=== PATIENT | male | born 1990 | race Caucasian/White ===

== ENCOUNTER 2021-10-16 09:19 | Emergency (ER) | payer OTHER ==
[2021-10-16 10:32] LABS: HIV (1/2) Antibody/Antigen Non-Reactive (NonReactive); HIV 1/2 INDEX 0.07 S/CO (<1.00); Hep C IgG Ab Non-Reactive (NonReactive); Hep C Index 0.14 S/CO (0-0.79)
[2021-10-16 11:31] LABS: Hep B Surf AB EQUIVOCAL (NonReactive)
[2021-10-16 11:33] LABS: HBSAB Concentration 8.74 mIU/mL
== END 2021-10-16 10:38 | disposition home or self-care (01) ==
LOC: ERS 09:19
DX: S69.91XA Unspecified injury of right wrist, hand and finger(s), initial encounter (principal); W26.0XXA Contact with knife, initial encounter
CPT/HCPCS: 36415; 86706; 86803; 87389; 99283